=== PATIENT | male | born 1950 | race Caucasian/White ===

== ENCOUNTER 2021-01-19 15:26 | Outpatient (CLI) | payer OTHER ==
--- NOTE | 2021-01-19 15:54 | XRAY Report ---
PROCEDURE: Knee 3 View LT INDICATIONS: STRAIN OF MUSCLES AND TENDONS AT LOWER LEG LEVEL, LEFT TECHNIQUE: 3 views of the left knee(s) were acquired. COMPARISON: None. FINDINGS: No acute fracture. Scattered subchondral sclerosis and spurring. Trace joint effusion. Scattered vas cular calcifications are noted. No definite joint space narrowing. IMPRESSION: Trace joint effusion. Elsewhere, no acute abnormality. If the patient's pain or other symptoms persis t, consider further evaluation with MRI. Reviewed by: Nicolas Stout MD on 01/19/2021 3:53 PM PDT Approved by: Nicolas Stout MD on 01/19/2021 3:53 PM PDT Station ID: [id number]
== END 2021-01-19 23:59 | disposition home or self-care (01) ==
LOC: DI.N 15:26
PROVIDERS: ATTEND Physician Assistant Medical
DX: S86.912A Strain of unspecified muscle(s) and tendon(s) at lower leg level, left leg, initial encounter (principal); M25.462 Effusion, left knee

== ENCOUNTER 2023-11-14 14:29 | Emergency (ER) | payer MEDICARE ==
[2023-11-14 15:48] LABS: BASOPHILS # (AUTO) 0.1 10^3/uL (0.0-0.1); BASOPHILS % (AUTO) 0.9 %; EOSINOPHILS # (AUTO) 0.2 10^3/uL (0.0-0.7); EOSINOPHILS % (AUTO) 1.8 %; HCT - HEMATOCRIT 44.7 % (42.0-52.0); HGB - HEMOGLOBIN 14.2 g/dL (14.0-18.0); LYMPHOCYTES # (AUTO) 1.5 10^3/uL (1.5-3.5); MEAN CORPUSCULAR HEMOGLOBIN 28.7 pg (27.0-31.0); MEAN CORPUSCULAR HGB CONC 31.8 g/dL (32.0-36.0); MEAN CORPUSCULAR VOLUME 90.3 fL (80.0-94.0); MEAN PLATELET VOLUME 11.1 fL (7.4-11.4); MONOCYTES # (AUTO) 0.5 10^3/uL (0.0-1.0); MONOCYTES % (AUTO) 4.1 %; NEUTROPHILS # (AUTO) 9.9 10^3/uL (1.5-6.6); NEUTROPHILS % (AUTO) 80.9 %; PLT - PLATELET COUNT 192 10^3/uL (130-450); RED BLOOD COUNT 4.95 10^6/uL (4.70-6.10); RED CELL DISTRIBUTION WIDTH 13.2 % (12.0-15.0); WHITE BLOOD COUNT 12.3 x10^3/uL (4.8-10.8)
[2023-11-14 16:09] LABS: TROPONIN I HIGH SENSITIVITY 13.2 ng/L (2.3-19.7)
[2023-11-14 16:16] LABS: ALBUMIN 4.1 g/dL (3.2-5.5); ALBUMIN/GLOBULIN RATIO 1.2 (1.0-2.2); BILIRUBIN,TOTAL 1.7 mg/dL (0.2-1.0); CALCIUM 9.7 mg/dL (8.5-10.3); POTASSIUM 3.9 mmol/L (3.5-4.5); TOTAL PROTEIN 7.4 g/dL (6.4-8.9)
--- NOTE | 2023-11-14 18:17 | ED Physician Documentation ---
PD HPI CHEST PAIN - Stated complaint Stated Complaint: CHEST PX - Chief complaint Chief Complaint: Cardiac - History obtained from History obtained from: Patient - Additional information Additional information: This is a 72-year-old gentleman who has history of an aortic aneurysm. When queried where he is, he seems unclear as to whether it is in the chest or the abdomen. He just says its next to my heart. Is been a little over 6 months since he last had a looked at and states that 6 months ago it was around 5 mm (I assume he means centimeters. Previous workup was done at [facility]. This morning he developed mild right-sided low chest pain or right upper quadrant pain radiating to the back. He says at its maximum it was a 3 out of 10 in intensity and now is a 2 -. He denies shortness of breath with this. PD PAST MEDICAL HISTORY - Past Medical History Past Medical History: Yes Cardiovascular: Hypertension Endocrine/Autoimmune: Type 2 diabetes Other Past Medical History: enlarged/infected prostate - Past Surgical History Past Surgical History: Yes - Present Medications Home Medications: Ambulatory Orders Medication Instructions Recorded Confirmed Aspirin EC [Ecotrin] 81 mg PO DAILY 11/14/23 11/14/23 Atorvastatin Calcium 40 mg PO QPM 11/14/23 11/14/23 Ciprofloxacin [Cipro] 250 mg PO Q12H #10 tablet 11/14/23 Gabapentin [Neurontin] 300 mg PO DAILY 11/14/23 11/14/23 Gabapentin [Neurontin] 600 mg PO HS 11/14/23 11/14/23 Lisinopril [Zestril] 2.5 mg PO DAILY 11/14/23 11/14/23 Metformin HCl [Metformin ER 1,000 mg PO DAILY 11/14/23 11/14/23 Osmotic] Tamsulosin [Flomax] 0.8 mg PO HS 11/14/23 11/14/23 - Allergies Allergies/Adverse Reactions: Allergies Allergy/AdvReac Type Severity Reaction Status Date / Time No Known Drug Allergies Allergy Verified 11/14/23 14:43 - Social History Does the pt smoke?: No Smoking Status: Never smoker PD ED PE NORMAL - Vitals Vital signs reviewed: Yes - General General: Alert and oriented X 3, No acute distress - Neck Neck: Supple, no meningeal sign, No bony TTP - Cardiac Cardiac: RRR, No murmur - Respiratory Respiratory: No respiratory distress, Clear bilaterally - Abdomen Abdomen: Normal bowel sounds, Soft, Non tender - Extremities Extremities: No edema, No calf tenderness / cord - Neuro Neuro: Alert and oriented X 3, Normal speech Results - Vitals Vitals: Vital Signs - 24 hr 11/14/23 11/14/23 11/14/23 14:35 19:13 21:00 Temperature 36.1 C L Heart Rate 96 79 70 Respiratory 22 17 19 Rate Blood Pressure 166/91 H 169/93 H 170/90 H O2 Saturation 97 97 95 11/14/23 21:45 Temperature Heart Rate 78 Respiratory 18 Rate Blood Pressure 165/89 H O2 Saturation 99 Oxygen O2 Source Room air - EKG (time done) 1452 EKG releavant findings:: EKG personally interpreted by author of this note. Relevant findings are: Rate: Rate (enter#) Rhythm: NSR [place]: Normal Intervals: Normal DC QRS: Normal Ischemia: Q waves Computer interpretation: Agree with computer - Labs Labs: Laboratory Tests 11/14/23 11/14/23 11/14/23 15:40 15:40 19:00 WBC 12.3 H RBC 4.95 Hgb 14.2 Hct 44.7 MCV 90.3 MCH 28.7 MCHC 31.8 L RDW 13.2 Plt Count 192 MPV 11.1 Neut # (Auto) 9.9 H Lymph # (Auto) 1.5 Brown # (Auto) 0.5 Eos # (Auto) 0.2 Baso # (Auto) 0.1 Absolute Nucleated RBC 0.00 Nucleated RBC % 0.0 Sodium 138 Potassium 3.9 Chloride 106 Carbon Dioxide 23 Anion Gap 9.0 BUN 18 Creatinine 1.0 Estimated GFR (MDRD) 74 L Glucose 189 H Calcium 9.7 Total Bilirubin 1.7 H AST 14 ALT 11 Alkaline Phosphatase 97 Troponin I High Sens 13.2 Total Protein 7.4 Albumin 4.1 Globulin 3.3 Albumin/Globulin Ratio 1.2 Lipase 25 Urine Color YELLOW Urine Clarity CLOUDY Urine pH 6.0 Ur Specific [place] 1.020 Urine Protein 30 H Urine Glucose (UA) NEGATIVE Urine Ketones NEGATIVE Urine Occult Blood MODERATE H Urine Nitrite POSITIVE H Urine Bilirubin NEGATIVE Urine Urobilinogen 0.2 (NORMAL) Ur Leukocyte Esterase LARGE H Urine RBC 6-10 H Urine WBC >25 H Ur Squamous Epith Cells NONE SEEN Urine Bacteria Few Ur Microscopic Review INDICATED Urine Culture Comments INDICATED - Rads (name of study) CTA chest showing mild ascending aortic aneurysm at 4.4 cm Relevant Findings:: Final report received, EMP independent interpretation of test CT a abdomen pelvis demonstrating cholelithiasis, no vascular issue acutely, enlarged prostate can with mass effect on the bladder Relevant Findings:: Final report received, EMP independent interpretation of test Right upper quadrant ultrasound showing hepatic steatosis and ch olelithiasis with renal cysts. Relevant Findings:: Final report received PD Medical Decision Making - ED course ED course: He kind of points of the right upper quadrant as the site of pain and does not appear in extremis. He has no murmur and has no abdominal tenderness. Given his history would certainly be concerned about the aortic aneurysm, again, as above, I am not sure whether his pre-existing aneurysm is in his chest or his abdomen. That said, it seems reasonable to do angiography studies of both. Given the location of his pain, a biliary source is also going to need to be considered and would consider ultrasound after angiography if angiography was negative. Subsequently his angiography did show gallstones and a ascending aorta measuring 4.4 cm. No evidence of dissection. He also has the thickened bladder wall and prostatic megaly. Workup otherwise demonstrates mild leukocytosis of 12.3, mild elevation in bilirubin with mild hyperglycemia and a positive urinalysis. He is having a lot of prostate symptoms and admits he missed his last appointment with urologist. He is started on Cipro for the UTI and recommended close follow-up with both urology as well as general surgery. Discussed with patient that given the ascending aorta he may not be an appropriate surgical candidate for this small hospital, but would be reasonable to at least start here and get referred out if they did not feel like he was a good candidate here. His urologist is at the [facility]. Departure - Departure Disposition: 01 Home, Self Care Clinical Impression: Biliary colic, Ascending aortic aneurysm, Prostate enlargement, Bladder infection Condition: Good Record reviewed to determine appropriate education?: Yes Instructions: ED Gallstone W Biliary Colic, ED UTI Cystitis Male Follow-Up: [facility] [Provider Group] Prescriptions: Ciprofloxacin [Cipro] 250 mg PO Q12H #10 tablet Comments: You were seen today for right upper quadrant pain radiating to the back. You did have the aortic aneurysm in your chest, and course that is very concerning when you have pain like this. That said, that is not causing any active pain, your ascending aortic aneurysm measures 4.4 cm in largest diameter. We also noted that you have gallstones which I suspect is causing your pain and a bladder infection due to a very enlarged prostate. You should follow-up with a general surgeon for evaluation of the gallbladder and your urologist to discuss the large prostate and urinary tract infection. We will culture your urine, the results should be done in 48-72 hours. If an antibiotic change is necessary we will call you. Return if worse in the meantime, especially if you develop increasing flank pain, fevers, or cannot keep down the medication. Forms: PCP List Discharge Date/Time: 11/14/23 21:54
[2023-11-14] MEDS ORDERED: iohexoL-300 100 ML VIAL ONE (18:19)
[2023-11-14] MEDS: iohexoL-300 100 ML VIAL IVP ONE (19:11)
[2023-11-14 19:29] LABS: BILIRUBIN,URINE NEGATIVE (NEGATIVE); GLUCOSE, URINE (UA) NEGATIVE (NEGATIVE); KETONES,URINE (UA) NEGATIVE (NEGATIVE); LEUKOCYTE ESTERASE, URINE LARGE (NEGATIVE); NITRITE,URINE POSITIVE (NEGATIVE); OCCULT BLOOD,URINE MODERATE (NEGATIVE); PROTEIN,URINE 30 mg/dL (NEGATIVE); UROBILINOGEN,URINE 0.2 (NORMAL) E.U./dL (NORMAL)
[2023-11-14 19:38] LABS: CLARITY,URINE CLOUDY (CLEAR)
[2023-11-14 19:43] LABS: BACTERIA,URINE Few /HPF (None Seen); SQUAMOUS EPITHELIAL CELL,UR NONE SEEN (<= Few); WBC,URINE >25 /HPF (0-3)
--- NOTE | 2023-11-14 20:37 | CT Report ---
PROCEDURE: Angio Abdomen/Pelvis INDICATIONS: chest/abd/back pain CONTRAST: 100ml omni 300 TECHNIQUE: After the administration of intravenous contrast, 2.5 mm thick sections acquired from the diaphragm t o the symphysis. 10 mm maximum-intensity projection (MIP) reformats were then acquired. For radiati on dose reduction, the following was used: automated exposure control, adjustment of mA and/or kV ac cording to patient size. COMPARISON: None FINDINGS: Image quality: Excellent. Aorta: There is no abdominal aortic aneurysm or dissection. Mesenteric arteries: Celiac trunk, superior and inferior mesenteric arteries appear patent. Right pelvic arteries: Right iliac and femoral arteries are well-opacified without hemodynamically s ignificant stenosis or aneurysm. Left pelvic arteries: Left iliac and femoral arteries are well-opacified without hemodynamically sig nificant stenosis or aneurysm. Extravascular soft tissues: Lung bases are clear. Heart size is enlarged. Liver and spleen are normal in size and enhancement. Gallbladder is distended. Calcified stones are noted in fundus and neck of gallbladder. No gallbladder wall thickening.. Biliary system is non dila maddy. Pancreas enhances normally. No adrenal nodules. Kidneys are normal in size and enhancement, w ithout hydronephrosis. Simple appearing bilateral renal cysts are seen measures up to 3.1 x 2.3 cm in lower pole right kidney. There is a small hiatal hernia. No bowel obstruction or abnormal bowel wall thickening. No mesenteric fat stranding. Appendix is visualized and is within normal limits. No free fluid or air. No retrope ritoneal or mesenteric adenopathy. No ventral hernias. Markedly distended urinary bladder is seen with mild bladder wall thickening. Enlarged prostate gland with mass effect on floor of urinary bladder is seen. No gross bladder wall mass. No suspicious bony lesions. Postsurgical changes are seen in left femur. No vertebral body compression fractures. IMPRESSION: 1. No abdominal aortic aneurysm or dissection. No hemodynamically significant stenosis are seen in me senteric arteries and bilateral pelvic arteries. 2. Cholelithiasis. No CT evidence of acute cholecystitis. No biliary ductal dilatation. 3. Bilateral renal cysts. No hydronephrosis or obstructing renal stones. 4. No bowel obstruction or abnormal bowel wall thickening. Normal appendix. No free fluid of free air . 5. Enlarged prostate gland with mass effect on floor of urinary bladder. Diffuse bladder wall thicken ing concerning for chronic urinary outlet obstruction. No definite bladder wall mass. Reviewed by: Rene Gabriel MD on 11/14/2023 8:35 PM PDT Approved by: Rene Gabriel MD on 11/14/2023 8:35 PM PDT Station ID: [id number]
--- NOTE | 2023-11-14 20:39 | CT Report ---
PROCEDURE: Angio Chest INDICATIONS: chest/abd/back pain aorta protocol CONTRAST: 100ml omni 300 TECHNIQUE: After the administration of intravenous contrast, 2 mm axial images were acquired from the pulmonary apices to the posterior costophrenic angles during the arterial phase. In addition, 1 mm lung kernel and 5 mm soft tissue kernel reconstructions were performed. 3-dimensional coronal oblique maximum int ensity projection (MIP) reformats, 8 mm axial MIP, and 5 mm coronal and sagittal MPR reformats were t hen performed through the thorax. For radiation dose reduction, the following was used: automated exp osure control, adjustment of mA and/or kV according to patient size. COMPARISON: None. FINDINGS: Image quality: Excellent. Large vessels: No filling defects within the opacified pulmonary arteries, accounting for motion and contrast timing. Mild ascending thoracic aortic aneurysm is seen measures up to 4.4 cm in largest AP diameter. No descending thoracic aortic aneurysm. No thoracic aortic dissection. Lungs and pleura: No consolidation. No pleural effusions. Mild dependent atelectasis in posterior asp ect of bilateral lung bases are seen. No pneumothorax. No suspicious pulmonary nodules which require follow up. Mediastinum: Heart size is enlarged. No pericardial effusion. No large vessel abnormality. No mediast inal adenopathy by size criteria. Chest wall and lower neck: Thyroid is unremarkable. No axillary or supraclavicular adenopathy by size . Bones: No aggressive osseous abnormality. Upper Abdomen: Unremarkable. IMPRESSION: 1. No pulmonary embolus. 2. Mild ascending thoracic aortic aneurysm measures up to 4.4 cm in largest AP diameter. No aortic di ssection. 3. Dependent atelectasis in posterior aspect of bilateral lower lobes. The lateral lungs are otherwis e clear. 4. Cardiomegaly, no pericardial effusion. No mediastinal or hilar lymphadenopathy. Reviewed by: Rene Gabriel MD on 11/14/2023 8:37 PM PDT Approved by: Rene Gabriel MD on 11/14/2023 8:37 PM PDT Station ID: [id number]
[2023-11-14] MEDS: CIPROFLOXACIN 250 MG TABLET PO STA (21:34)
--- NOTE | 2023-11-14 21:54 | Ultrasound Report ---
PROCEDURE: Abdomen Limited INDICATIONS: RUQ pain TECHNIQUE: Real-time focused scanning was performed of the abdomen, with image documentation. COMPARISONS: CT angiogram of abdomen and pelvis dated 09/14/2023. FINDINGS: Liver: Liver is enlarged with coarsely echogenic liver parenchymal echotexture. No discrete hepatic lesion. Gallbladder: Stones are seen in gallbladder lumen measures up to 1.4 cm in size near fundus. Gallblad kimmy wall thickening is noted measures up to 4.6 mm in thickness. No pericholecystic fluid or sonograp hic Syed's sign. Biliary ducts: Intrahepatic bile ducts are non-dilated. Extrahepatic bile duct caliber measures 6.1 mm. Normal is 6-7 mm or less in diameter, or 10 mm or less post-cholecystectomy. Pancreas: Visualized portions of the pancreas are sonographically normal. Right kidney: Normal in size and echotexture. Right kidney measures 12.8 cm long. No hydronephrosis or nephrolithiasis. 2.8 cm simple cyst in lower pole right kidney is seen. No solid masses. No compl ex renal cystic lesions which require follow-up. IVC: Intrahepatic inferior vena cava is patent. Miscellaneous: No free abdominal fluid. IMPRESSION: 1. Hepatic steatosis, and mild hepatomegaly. No discrete hepatic lesion. 2. Cholelithiasis. No sonographic evidence of acute cholecystitis. No biliary ductal dilatation. 3. Right renal cysts. No solid-appearing renal lesion or hydronephrosis. Reviewed by: Rene Galicia MD on 11/14/2023 9:52 PM PDT Approved by: Rene Galicia MD on 11/14/2023 9:52 PM PDT Station ID: [id number]
[2023-11-14 21:55] VITALS: BP 165/89; O2SAT 99
== END 2023-11-14 21:54 | disposition home or self-care (01) ==
LOC: ED 14:29
DX: K80.70 Calculus of gallbladder and bile duct without cholecystitis without obstruction (principal); I71.21 Aneurysm of the ascending aorta, without rupture; N40.0 Benign prostatic hyperplasia without lower urinary tract symptoms; N30.90 Cystitis, unspecified without hematuria
CPT/HCPCS: 36415; 71275; 74174; 76705; 80053; 81001; 83690; 84484; 85025; 87086; 93005; 99284; 99285; A9270; Q9967; 81003